=== PATIENT | female | born 2005 | race Caucasian/White ===

== ENCOUNTER 2024-05-20 13:37 | Emergency (ER) | payer SELFPAY ==
[2024-05-20 14:00] VITALS: BP 108/73; PULSE 94; RESP 16; TEMP 36.9; O2SAT 100
[2024-05-20 14:22] LABS: Bilirubin Urine 2+ (Negative); Blood Urine 3+ (Negative); Glucose Urine UA Negative (Normal); Ketones Urine 2+ (Negative); Leukocyte Esterase Urine 3+ (Negative); Nitrate Urine Positive (Negative); Protein Urine 2+ (Negative); Specific Gravity, Urine 1.025 (1.005-1.030); Urine Appearance Turbid (CLEAR)
[2024-05-20 14:27] LABS: HCG Qualitative Urine. Negative (Negative)
[2024-05-20 14:31] LABS: Add Urine Microscopic? YES; Bacteria Urine 2+ /hpf; RBC Urine 80-100 /hpf (0-2); Squamous Epithelial Cell Urine 0-4 /hpf (0-5); UA Manual Slide Review YES; Urine Color Orange (Yellow); WBC Urine 25-40 /hpf (0-5)
[2024-05-20 14:32] LABS: Add Urine Culture? Yes
--- NOTE | 2024-05-20 15:18 | ED_ITS ---
HPI - Female Genitourinary General: Chief complaint: Urogenital-Female Stated complaint: blood in urine, unable to pee Time Seen by Provider: 05/20/24 15:17 History of Present Illness: Patient is a 19-year-old female Associated symptoms: Deny abdominal pain, headache(s) or nausea Related Data Previous Rx's Medication Instructions Recorded ketorolac 10 mg tablet 10 mg PO Q8H PRN pain 5 days #20 05/20/24 tabs ondansetron 4 mg disintegrating 4 mg PO TID PRN nausea and 05/20/24 tablet vomiting 5 days #20 tabs phenazopyridine 100 mg tablet 100 mg PO Q8H PRN Bladder spasm 05/20/24 (Pyridium) #20 tabs sulfamethoxazole 800 1 tab PO DAILY 10 days #20 tabs 05/20/24 mg-trimethoprim 160 mg tablet (Bactrim DS) Allergies Allergy/AdvReac Type Severity Reaction Status Date / Time No Known Allergies Allergy Verified 05/20/24 14:03 Review of Systems General: Reports: 10 or more systems reviewed and unremarkable except in HPI and below Const: Denies: fever(s), chills, change in appetite, change in weight, fatigue or malaise Card: Denies: chest pain, palpitations, irregular heart rhythm, edema, dyspnea on exertion, orthopnea or leg pain with exertion Resp: Denies: dyspnea, productive cough, non-productive cough, wheezing, stridor or chest congestion GI: Denies: abdominal pain, nausea, vomiting, dysphagia, diarrhea, constipation, bloating, GI cramping or hematochezia : Reports: flank pain, difficulty voiding, dysuria, urinary frequency, urinary urgency, urinary hesitancy and hematuria; Denies: oliguria Musc: Denies: neck pain, back pain, extremity pain, joint pain, joint swelling, joint redness, joint warmth or muscle weakness Skin/Breast: Denies: rash, pruritus, erythema, photosensitivity or new lesions Neuro: Denies: headache(s), numbness in extremities, weakness in extremities, sensory changes, lack of coordination, difficulty walking, frequent falls, dizziness, confusion, Slurred speech present, difficulty communicating thoughts, seizure-like activity or involuntary movements Endo: Denies: polyuria, polydipsia or tired all the time Krzysztof/Lymph: Denies: easy bruising or easy bleeding Physical Exam Const: COMMON NORMALS: no acute distress, patient oriented x3 and alert GENERAL APPEARANCE: cooperative ORIENTATION/CONSCIOUSNESS: Yes awake, Yes oriented to person, Yes oriented to place and Yes oriented to time HENMT: COMMON NORMALS: normocephalic and atraumatic HEAD & SCALP: normocephalic and atraumatic FACE & SINUS: normal facial exam MOUTH: Normal oral and palatal mucosa present THROAT: posterior oropharynx normal Eye: COMMON NORMALS: Equal, round and reactive pupils present, EOMs intact bilaterally, conjunctivae normal and no scleral icterus GENERAL EYE: appearance normal, both eyes and all related structures ALIGNMENT: Yes alignment normal PERIORBITAL: periorbital findings normal CONJUNCTIVA: Yes conjunctivae normal PUPIL: Yes Equal, round and reactive pupils present Neck/C-Spine: COMMON NORMALS: full ROM GENERAL: Yes normal visual inspection Lymph: LYMPHATIC: no lymphadenopathy noted Chest: COMMONS NORMALS: normal inspection of the chest Breast/axilla inspection: Yes no chest deformity, asymmetry, normal contours, no nodules, masses, tenderness Resp: COMMON NORMALS: normal respiratory effort, No retractions, No use of accessory muscles and clear to auscultation bilaterally EFFORT & INSPECTION: Yes able to speak in complete sentences and Yes symmetric chest movement AUSCULTATION: clear to auscultation bilaterally Cardio: COMMON NORMALS: regular rate, regular rhythm and Peripheral pulses 2+ throughout RATE: regular rate RHYTHM: regular rhythm PERIPHERAL PULSES: Peripheral pulses 2+ throughout GI: COMMON NORMALS: Normal to inspection, nondistended, normoactive bowel sounds present, Soft to palpation, non-tender and No hepatosplenomegaly present INSPECTION: Yes normal to inspection AUSCULTATION: Yes normoactive bowel sounds PALPATION: Yes Soft to palpation and Yes No hepatosplenomegaly present RECTAL EXAM: deferred Extremity: COMMON NORMALS: normal to inspection GENERAL: Yes normal exam except as noted Neuro: COMMON NORMALS: patient oriented x3 SENSORIUM/ORIENTATION: Yes alert, Yes oriented to person, Yes oriented to place and Yes oriented to time CRANIAL NERVES: Yes CN normal except as noted Psych: COMMON NORMALS: mental status grossly normal, Normal thought process present, cooperative, activity/motor behavior normal, denies homicidal ideation and denies suicidal ideation THOUGHT PROCESS: Normal thought process present Skin: COMMON NORMALS: no rashes or lesions noted, no wounds and turgor normal GENERAL SKIN EXAM: no rashes or lesions noted and turgor normal Course Vital Signs: Vital signs: Vital Signs Temperature 98.4 F 05/20/24 14:00 Pulse Rate 94 05/20/24 14:00 Respiratory Rate 16 05/20/24 14:00 Blood Pressure 108/73 05/20/24 14:00 Pulse Oximetry 100 05/20/24 14:00 Oxygen Delivery Me thod Room Air 05/20/24 14:00 MDM - Female Medical Decision Making Patient is a 29-year-old female that presents to the emergency department with complaints of urinary hesitancy, frequency, urgency and dysuria. Onset of symptoms the last 24 hours. Patient denies fever but has had chills. Has had 1 episode of vomiting today. He is mildly tachycardic with a rate no greater than 110 but she has been eating and drinking without difficulty. Patient was offered IV fluids and further laboratory evaluation. She was also offered a exam should she have any vaginal discharge. I explained that I do believe she probably has a urinary tract infection due to the positive nitrates, white blood cells of 40 and 2+ bacteria. Her urine has been sent off for culture. They deny any further workup. I am going to treat her with Bactrim here in the emergency department along with Toradol, Zofran, and Pyridium. Will going to send her home on similar medications. Mother did bring up possible concerns for kidney stone. But she does not appear to have a kidney stone. She is very comfortable no acute distress. I am advising her to follow-up with primary care doctor should she develop new concerning or worsening symptoms. All questions and Lab Data Laboratory Results HCG, Qual Negative (Negative) 05/20/24 14:10 Urine Color [place] (Yellow) A 05/20/24 14:10 Urine Appearance Turbid (CLEAR) A 05/20/24 14:10 Urine pH 6.0 (5-7) 05/20/24 14:10 Ur Specific [place] 1.025 (1.005-1.030) 05/20/24 14:10 Urine Protein 2+ (Negative) A 05/20/24 14:10 Urine Glucose (UA) Negative (Normal) 05/20/24 14:10 Urine Ketones 2+ (Negative) H 05/20/24 14:10 Urine Blood 3+ (Negative) A 05/20/24 14:10 Urine Nitrate Positive (Negative) A 05/20/24 14:10 Urine Bilirubin 2+ (Negative) H 05/20/24 14:10 Urine Urobilinogen 1.0 mg/dL (Negative) 05/20/24 14:10 Ur Leukocyte Esterase 3+ (Negative) A 05/20/24 14:10 Urine RBC 80-100 /hpf (0-2) H 05/20/24 14:10 Urine WBC 25-40 /hpf (0-5) H 05/20/24 14:10 Ur Squamous Epith Cells 0-4 /hpf (0-5) H 05/20/24 14:10 Amorphous Sediment Not Reportable 05/20/24 14:10 Urine Bacteria 2+ /hpf (NONE) H 05/20/24 14:10 No radiology studies performed this visit Discharge Plan Discharge Patient Disposition: Home Clinical Impression: Urinary tract infection Condition: Stable Prescriptions: New ketorolac 10 mg tablet 10 mg PO Q8H PRN (Reason: pain) 5 Days Qty: 20 0RF ondansetron 4 mg tablet,disintegrating 4 mg PO TID PRN (Reason: nausea and vomiting) 5 Days Qty: 20 0RF phenazopyridine [Pyridium] 100 mg tablet 100 mg PO Q8H PRN (Reason: Bladder spasm) Qty: 20 0RF sulfamethoxazole-trimethoprim [Bactrim DS] 800-160 mg tablet 1 tab PO DAILY 10 Days Qty: 20 0RF No Action No Known Home Medications Discharge Orders: Discharge ED (Routine); Ordered 05/20/24 Ordered By: Geoff Strickland McTnicole Referrals: Cliff George MD [Primary Care Provider] - Discharge Diet: Advance as tolerated Discharge Activity: Resume usual activity Patient Instructions: Urinary Tract Infection in Women (DC), Opioid Safety, Pain Management Activity Restrictions/Additional Instructions: Please return to the emergency department for new concerning or worsening symptoms. I wanted to follow-up with your primary care doctor if you are not better in 3 to 4 days. Can always come back here if you do not have a primary care doctor. Coding Level of Care Code ED [employer]
[2024-05-20] MEDS: ondansetron 4 MG Tablet PO (16:00)
[2024-05-20] MEDS: phenazopyridine 100 mg Tablet PO (16:00)
[2024-05-20] MEDS: sulfamethoxazole-trimeth DS 160-800 mg Tablet 1 TAB PO (16:01)
[2024-05-20] MEDS: ketorolac 30 mg/mL INJ IM (16:01)
[2024-05-20 16:20] VITALS: BP 103/77; PULSE 100; RESP 16; O2SAT 99
== END 2024-05-20 16:19 | disposition home or self-care (01) ==
PROVIDERS: Emergency Medicine; Emergency Provider Nurse Practitioner; PCP Family Medicine
DX: N39.0 Urinary tract infection, site not specified (principal)
CPT/HCPCS: 81001; 81025; 87086; 96372; 99284; J1885; Q0162